=== PATIENT | female | born 1945 | race Two or more races ===

== ENCOUNTER 2019-04-12 19:38 | Emergency (ER) | payer BC, MEDICARE ==
[~2019-04-12] VITALS: Ht 170.2 cm; Wt 90.7 kg
--- NOTE | 2019-04-12 20:20 | NUR ---
PT AAOX4. C/O R FOOT PAIN SP STUMBLLING. -KO -LOC. INFLAMMAITION NOTED ON R FOOT. NO NEURO DEFICT. PT PLACED ON MONITOR AND PULSE OX. NO ACUTE DISTRESS NOTED. AWAITING MD FOR EVAL.
[2019-04-12] MEDS ORDERED: IBUPROFEN 600 MG TABLET PO ONE ×2 (20:48→21:00)
--- NOTE | 2019-04-12 20:49 | NUR ---
xray at bedside
--- NOTE | 2019-04-12 21:11 | NUR ---
Patient is resting comfortably in bed. Easily aroused. VSS.
--- NOTE | 2019-04-12 21:52 | NUR ---
Patient is resting comfortably in bed. Easily aroused. VSS
--- NOTE | 2019-04-12 21:59 | NUR ---
EMT AT BEDSIDE FOR SPLINT PLACEMENT
--- NOTE | 2019-04-12 22:52 | NUR ---
Patient discharged to home in stable condition. Written and verbal after care instructions given. Patient verbalizes understanding of instruction of use of crutches. Pt demonstrated crutch use. vss.
[2019-04-12 23:00] VITALS: BP 124/64
== END 2019-04-12 23:01 | disposition home or self-care (01) ==
LOC: ER 19:38
DX: S90.31XA Contusion of right foot, initial encounter (principal); Z98.890 Other specified postprocedural states; Z60.2 Problems related to living alone; X50.1XXA Overexertion from prolonged static or awkward postures, initial encounter; Y93.E8 Activity, other personal hygiene; Y92.89 Other specified places as the place of occurrence of the external cause; Y99.8 Other external cause status
CPT/HCPCS: 73630-TC